=== PATIENT | male | born 1975 | race Caucasian/White ===

== ENCOUNTER 2017-03-29 16:52 | Observation (INO) ==
[2017-03-29] MEDS ORDERED: NS 1,000 ML IV PRN (21:09)
--- NOTE | 2017-03-29 21:13 | PROVIDER DOCUMENTATION ---
This chart was entered by Geovany De Jesus Scribe, acting as scribe for Aiden Whaley MD. HPI-Musculoskeletal Pain/Inj - GENERAL Chief Complaint: Extremity Pain Stated Complaint: NUMBNESS Time Seen by Provider: 03/29/17 17:10 Source: patient - HX OF PRESENT ILLNESS-MUSKULOSKELTAL Nature of Presenting Problem: Pt is a 42 yowm who presents to ER with CC of left arm deficit. Pt reports that he woke up this am with left elbow, wrist, and finger weakness. 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 Quality of Pain: reports: none Severity in ED: mild Onset/Duration: this morning Timing: still present Any recent injury?: No Locality of Occurance: Home Similar Symptoms Previously?: No Recently seen or treated by another doctor?: No - UPPER EXTREMITY PAIN/INJURY Extremities Pain Location: forearm: left, wrist: left, hand: left, thumb: left, 2nd finger: left, 3rd finger: left, 4th finger: left, 5th finger: left Context / Method of Injury: reports: unknown Associated Symptoms: reports: numbness in upper ext, weakness in upper ext. denies: muscle spasms, sensory/motor loss, tingling in upper ext Review of Systems - Adult - REVIEW OF SYSTEMS - ADULT Constitutional: reports: see HPI. denies: chills, fever, fatique, night sweats , weight gain, weight loss Eyes: reports: no symptoms reported Ears, Nose, Mouth & Throat: reports: no symptoms reported Cardiovascular: reports: no symptoms reported Respiratory: reports: no symptoms reported Gastrointestinal: reports: no symptoms reported Genitourinary: reports: no symptoms reported Musculoskeletal: reports: muscle weakness. denies: bone pain, back pain, frequent leg cramps, joint pain, joint swelling, muscle aches, neck pain Integumentary: reports: no symptoms reported Neurological: reports: no symptoms reported Psychiatric: reports: no symptoms reported Endocrine: reports: no symptoms reported Hematologic/Lymphatic: reports: no symptoms reported Allergic/Immunologic: reports: no symptoms reported All Other Systems: Reviewed and Negative Past History - Adult - PAST MEDICAL HISTORY-ADULT Review of Records: reports: Old Records Reviewed, Nursing Assessment Review, Medications Reviewed Major Childhood Illnesses: reports: denies history Cardiovascular: reports: denies history - IMMUNIZATION STATUS Childhood Immunizations: See Nurse Assessment Flu Vaccine: See Nurse Assessment Physical Exam-Injury Related - Physical Exam-Injury Related Initial Vital Signs Reviewed: Yes General Appearance: appears well, alert, mild distress, anxious Eyes: PERRL/EOMI, pink conjunctivae Head, Ears, Nose, Mouth & Throat: normocephalic/atraumatic Neck: non-tender, full range of motion, supple, normal inspection. negative: C- spine tenderness, decresed ROM, limited range of motion Respiratory: chest non-tender, lungs clear, normal breath sounds, no pleuratic chest pain, no respiratory distress, no accessory muscle use. negative: respiratory distress, decreased breath sounds, accessory muscle use, wheezing Cardiovascular: normal peripheral pulses, regular rate, rhythm. negative: bradycardia, tachycardia, irregularly irregular Abdominal Exam: normal bowel sounds, non tender, soft, no organomegaly, no pulsatile mass. negative: guarding, rebound, tenderness Back Exam: no CVA tenderness, no vertebral tenderness. negative: CVA tenderness , vertebral tenderness Extremity: non-tender, normal gait, normal inspection, no pedal edema, no calf tenderness, normal capillary refill, pelvis stable, other (left hand dental coordinator strength weakness). negative: normal range of motion, deformity, erythema, inflammation, swelling, tenderness Integumentary: normal color, warm/dry. negative: ecchymosis, erythema, swelling , tenderness, warm Psych/Mental Status: normal thought content, normal thought process, oriented x 3, anxious. negative: normal mood/affect Progress - PLAN OF CARE/RESULTS Progress/Plan/Lab Results: Orders Category Date Time Status Admit - [facility] Routine AdmDCTranf 03/30/17 06:39 Ordered Activity - Up with Assistance ORDERED Care 03/30/17 06:39 Active Cardiac Monitoring DIRECTED Care 03/29/17 21:09 Completed Neurological Check ORDERED Care 03/30/17 03:50 Active Neurological Check q4h Care 03/30/17 03:50 Completed Oxygen Therapy- ED Nursing DIRECTED Care 03/29/17 21:09 Completed Vital Signs Order Q 8-HR ASSESS Care 03/30/17 06:39 Active Regular Diet Diet 03/30/17 03:[address] HEAD/C-SPINE W/O CONTRAST [CT] Stat Exams 03/29/17 21:08 Completed CBC WITH ELECTRONIC DIFF [HEME] Stat Lab 03/29/17 21:50 Completed COMPREHENSIVE METABOLIC PANEL [CHEM] Stat Lab 03/29/17 21:50 Completed PROTIME WITH INR [COAG] Stat Lab 03/29/17 21:50 Completed PTT [COAG] Stat Lab 03/29/17 21:50 Completed TROPONIN T Stat Lab 03/29/17 21:50 Completed URINALYSIS W/POSS RFLX CULT-1 [URINALYSIS] Stat Lab 03/29/17 22:55 Completed 0.9% Sodium Chloride Inj [Ns] 1,000 ml Med 03/29/17 21:09 Discontinued IV 50 mls/hr Enoxaparin [Lovenox] Med 03/30/17 06:39 Discontinued 40 mg SUBQ Q24H EKG [EKG] Stat Ther 03/29/17 21:09 Draft Transfer/Admit Order [TRANSFER] Routine Transfer 03/30/17 03:47 Completed Result Diagrams: 03/29/17 21:50 03/29/17 21:50 - EKG 1 Time of EKG reading by physician:: 21:43 EKG Read and Signed by:: Aiden Whaley EKG Interpretation (*Must complete 3 of following elements*): Normal Rate: 69 Rhythm: NSR - CT/MRI 1 CT Study: Head Impression: See EMR Report CT Results: Normal CT fo the head - Dr. Walsh (Radiologist) 2 CT Study: Cervical Spine Impression: See EMR Report (There is mild degenerative disc disease at C5-6 and C6-7 posterior osteophyte formation. There is no evidence of fx or subluxation or prevertebral soft tissue swelling - Dr. Walsh (Radiologist)) Departure - Departure Date of Disposition Decision: 03/29/17 Time of Disposition Decision: 22:19 DIAGNOSIS: Weakness of left upper extremity Disposition: ADMITTED INPATIENT 09 Certified Medical Emergency: Emergent Condition: Stable - Critical Care Note This patient required my direct & personal management of CC.: No Attestation - Physician/ OLLIE Attestation Patient care was provided by Advanced Practice Provider:: No The physician spent face to face time with patient:: Yes Advanced Practice Provider documentation review:: Supervising physician onsite and consulted in the evaluation and care of this patient. The physician did have a face to face encounter with the patient. This chart was documented by the indicated scribe, (Geovany De Jesus, Adama) and accurately reflects the services I performed and decisions made by me, Aiden Whaley MD, as attested by the provider's signature.
[2017-03-29 21:52] LABS: MANUAL DIFF NEEDED? NO
[2017-03-29 21:58] LABS: BASO% 0.2 % (0.0-0.8); EOS# 0.12 X1000 (0.0-0.7); EOS% 1.9 % (0.0-10.0); HEMATOCRIT 44.5 % (42.0-52.0); HEMOGLOBIN 14.6 g/dL (14.0-18.0); LYMPH# 1.72 X1000 (1.2-3.4); LYMPH% 27.4 % (20.5-51.1); MCH 31.9 PG (27-31); MCHC 32.8 g/dL (33-37); MCV 97.4 FL (81-99); MONO# 0.38 X1000 (0.11-0.59); MONO% 6.1 % (1.7-9.3); NEUT% 64.4 % (42.2-75.2); PLT 157 X1000 (130-400); RBC 4.57 XMIL (4.7-6.1)
[2017-03-29 22:03] LABS: INR 0.97; PROTIME 10.2 Seconds (9.2-11.7); PTT 24.8 Seconds (22.0-36.0)
[2017-03-29 22:15] LABS: AGAP 9; ALBUMIN 3.7 g/dL (3.5-5.0); ALKALINE PHOSPHATASE 48 U/L (32-122); BUN 19 mg/dL (8-22); CALCIUM 8.9 mg/dL (8.8-10.2); CHLORIDE 102 mmol/L (98-107); COSMO 285; GOT 18 U/L (10-34); GPT 25 U/L (10-44); POTASSIUM 4.5 mmol/L (3.5-5.1); SODIUM 142 mmol/L (136-145); TCO2 31 mmol/L (25-35); TOTAL BILIRUBIN 0.21 mg/dL (0.20-1.00); TOTAL PROTEIN 6.3 g/dL (6.3-8.3)
[2017-03-29] MEDS ORDERED: NS 1,000 ML ONE ×2 (22:47)
[2017-03-29 23:07] LABS: URINE CULTURE NEEDED? NO; URINE MICRO REVIEW NEEDED? NO; URINE SOURCE CLEAN CATCH
[2017-03-29 23:11] LABS: BILIRUBIN URINE NEGATIVE (NEGATIVE); BLOOD URINE NEGATIVE (NEGATIVE); COLOR STRAW; GLUCOSE URINE NEGATIVE (NEGATIVE); LEUKOCYTES URINE NEGATIVE (NEGATIVE); NITRITE URINE NEGATIVE (NEGATIVE); PH URINE 7.5; PROTEIN URINE NEGATIVE (NEGATIVE); SP GRAVITY URINE 1.011; TURBIDITY URINE CLEAR (CLEAR); UR EPITHELIAL CELLS <10 /HPF (<10); URINE BACTERIA NEGATIVE /HPF; URINE RBC <10 /HPF (<10); URINE WBC <10 /HPF (<10); UROBILINOGEN URINE NORMAL (NORMAL)
--- NOTE | 2017-03-30 05:16 | EKG Report ---
Test Performed on : 03/29/2017 9:43:57 PM Test Reason : WEAKKNESS Blood Pressure : / mmHG Vent. Rate : 069 BPM Atrial Rate : 069 BPM P-R Int : 136 ms QRS Dur : 088 ms QT Int : 404 ms P-R-T Axes : 034 037 049 degrees QTc Int : 432 ms Normal sinus rhythm. Normal ECG No previous ECGs available Unconfirmed Result
[2017-03-30] MEDS ORDERED: LOVENOX SUBQ SCH (06:39)
--- NOTE | 2017-03-30 06:42 | HISTORY AND PHYSICAL ---
PRIMARY CARE PHYSICIAN: None. CHIEF COMPLAINT: Left arm motor deficit. HISTORY OF PRESENT ILLNESS: Mr. Gardner is a healthy, 42-year-old male with no significant past medical history who comes to the hospital complaining of not being able to completely move his arm and significant weakness on the left arm. The patient states that Wednesday morning, 2 days ago, he woke up with his left arm numb and tingly. Initially, he ignored it, thinking it was just asleep and then he became gradually more concerned that he could not feel his arm. The patient states that his right arm feels very heavy. He is unable to close his hand. He can barely move his fingers. When he tries to raise his left hand, he merely drops it. The patient decided to come to the emergency room for further workup. In the emergency room, imaging was done, CT scan was done. REVIEW OF SYSTEMS: Negative except as stated above. PAST MEDICAL HISTORY: None. PAST SURGICAL HISTORY: None. ALLERGIES: No known drug allergies. HOME MEDICATIONS: None. SOCIAL HISTORY: The patient is a smoker. Denies drinking alcohol or using illicit drugs. FAMILY HISTORY: Positive for breast cancer in his mother. PHYSICAL EXAMINATION: VITAL SIGNS: Temperature 98.5 degrees, pulse 79, respirations 21, blood pressure 145/94, oxygen saturation 98% on room air. GENERAL: Patient is alert and oriented x3. No acute distress. HEENT: Head is normocephalic, atraumatic. Eyes, SAMANTHA. Moist mucous membranes. NECK: Supple. PULMONARY: Well-ventilated bilaterally. No wheezing, rales, or crackles. CARDIOVASCULAR: S1, S2. No rubs, murmurs, or gallops. ABDOMEN: Soft, nondistended, and nontender. EXTREMITIES: No lower extremity edema. Full range of motion. There is 5/5 strength bilaterally. Upper right extremity within normal limits. Normal range of motion. Strength 5/5. Left upper extremity, the patient is able to lift his arm to 90 degrees and then suddenly it drops. The patient cannot fully close his hand. He can move his fingers. He cannot make a full fist. NEUROLOGIC: Cranial nerves 2-12 are intact. Negative pronator drift. Normal symmetry of the face. PSYCHIATRIC: Normal mood and affect. LABORATORY DATA: White blood cell count 6.7, hemoglobin 15, hematocrit 44, platelets 157,000. Sodium 142, potassium 4.5, BUN 19, creatinine 0.9. LFTs within normal limits. Troponin #1 negative. UA negative. IMAGING STUDIES: Head CT and cervical CT show no evidence of acute disease. EKG is within normal limits. ASSESSMENT AND PLAN: Radial nerve palsy. It is likely that the patient fell asleep on his arm and therefore he cannot move his arm. This is unlikely a transient ischemic attack or stroke. We will consider a neurology consult in the morning. The patient is being admitted under observation status. So far, his labs and imaging have been normal. We will continue to monitor. cc: Lianet Motley MD
[2017-03-30 09:50] VITALS: BP 144/96
--- NOTE | 2017-03-30 15:53 | DISCHARGE SUMMARY ---
ADMISSION DATE: 03/30/2017 DISCHARGE DATE: 03/30/2017 ADMISSION DIAGNOSIS: Left radial nerve palsy. DISCHARGE DIAGNOSIS: Left radial nerve palsy. CONSULTATIONS: None. PROCEDURES: None. HOSPITAL COURSE: Mr. Yousif Gardner is a 42-year-old, male with no significant past medical history who comes in with complaints of numbness over the top of his left hand. Although he is able to flex his wrist, he is unable to extend. Hand strength is normal and numbness is on top of the hand. 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 Apparently Wednesday morning, around 2 days ago, he fell asleep on his porch after watching a movie on his iPad and felt the numbness of his hand and it was tingly. He ignored it and felt it would improve after he went to bed. He woke up the next morning and it was still numb. He proceeded to ignore it over the last couple of days and then with the concern that it may become worse he proceeded to come to the [facility] ER. Apparently on presentation he was unable to close his hand and his hand felt heavy but currently he can close his hand, he is just unable to extend it at the wrist. Workup included a head/cervical spine CT which did not show any acute findings. It did show that there was some mild degenerative disc disease at C5 through 6 and C6 through 7 with posterior osteophyte formation. There was no evidence of fracture, subluxation or vertebral soft tissue swelling. The head CT was also normal. Vital signs remained stable during his stay. Laboratory data had no significant abnormal labs and it was deemed appropriate to be discharged home to follow up with his primary care provider, Dr. Luis [place], in 1-2 weeks. Radial nerve palsy will take several days if not longer to improve and will improve without the use of any type of medications. DISCHARGE VITAL SIGNS: Temperature 98.1 degrees, heart rate 73, respiratory rate 20, blood pressure 144/96, O2 saturation 95%. DISCHARGE DIET: Regular. DISCHARGE MEDICATIONS: None. DISCHARGE ACTIVITIES: As tolerated. DISCHARGE INSTRUCTIONS: Instructed to keep the left arm as straight as possible during sleep to prevent more damage to the radial nerve with position changes. DISCHARGE DISPOSITION: Home with instructions to follow up with Dr. Luis [place] in 1-2 weeks. Dictated by HADLEY Sanchez for Colt Khoury MD cc: HADLEY Sanchez MD Alan Walker, MD
--- NOTE | 2017-04-02 11:09 | Diag Imaging Result Doc PS360 ---
EXAM: CT HEAD/C-SPINE W/O CONTRAST HISTORY: Trauma TECHNIQUE: CT of the head without contrast; CT of the cervical spine COMMENT: Head: There is no evidence of mass effect, bleed, abnormal extra-axial fluid collection, or hydrocephalus. The calvarium is intact. The visualized paranasal sinuses are clear. Cervical spine: There is mild degenerative disc disease at C5-6 and C6-7 posterior osteophyte formation. There is no evidence of fracture or subluxation or prevertebral soft tissue swelling. IMPRESSION: No evidence of acute disease. Electronically signed by Yakov Walsh 04/02/2017 11:06 AM
== END 2017-03-30 10:51 | disposition home or self-care (01) ==
LOC: ED 16:52 → EDIPHOLD 16:52 → ED 19:28 → SUATTDRO 03-30 06:42 → EDIPHOLD 03-30 10:37
PROVIDERS: ATTEND Emergency Medicine